=== PATIENT | male | born 1940 | race Caucasian/White ===

== ENCOUNTER 2021-03-29 07:30 | Outpatient (CLI) | payer MEDICARE, SELFPAY ==
--- NOTE | ~2021-03-29 | CT_ITS ---
EXAMINATION: CT chest abdomen pelvis w con EXAM DATE: 03/29/2021 08:01 INDICATION: M54.9 - Dorsalgia, unspecified. Cough. Colon cancer. Nausea. TECHNIQUE: Spiral CT of the chest, abdomen and pelvis was performed following intravenous injection o f 100 mL Omnipaque 350. Axial, coronal and sagittal images chest, abdomen and pelvis were reviewed. Coronal maximum intensity pixel images of chest reviewed. The dose-length product (DLP) for this ex amination was 1122.44 mGy-cm. The exposure was tailored according to patient size (auto mA exposure control), and iterative reconstruction (ASIR) was used as additional dose reduction technique. 2012 FINDINGS: CHEST: Scattered small regions of post infectious residua. No suspicious lung opacities. No aortic d issection or central pulmonary emboli. There are no pleural or pericardial effusions. Tracheobronc hial tree is patent. There is no mediastinal, hilar or axillary lymphadenopathy. There is no pneu mothorax. Heart normal in size. There is moderate coronary arterial calcification, arterial scler osis. ABDOMEN PELVIS: Scattered small liver lesions which are fluid density consistent with cysts. Low-dens ity left adrenal lesion, adenoma measuring 1.1 cm. The liver, spleen, adrenal glands and pancreas are otherwise unremarkable. Gallbladder is unremarkable. No biliary obstruction. Portal and splenic v eins are patent. Kidneys enhance symmetrically. There is no hydronephrosis. There are a couple of l eft renal cysts measuring up to 1.8 cm. The prostate is unremarkable. Small inguinal fat-containing hernias. The bladder is unremarkable. There is no retroperitoneal or pelvic lymphadenopathy. Ther e is mild scattered arteriosclerotic disease. The appendix is not positively visualized. There is no pericecal inflammatory change to suggest appe ndicitis. There is an ileal anastomosis, and a rectosigmoid anastomosis. There are jejunal diverticul a, largest measuring about 5 cm. There is expected amount of colonic stool. No free intraperitonea l gas. Right hip arthroplasty hardware. There is L3 small hemangioma unchanged. There are no osteob lastic or osteolytic lesions identified. IMPRESSION: 1. Scattered small regions lung post infectious residua. 2. Jejunal diverticulosis. 3. Small inguinal hernias. 4. Surgical changes. Reviewed, dictated and finalized at location B.
[2021-03-29 07:56] LABS: Estimated Glomerular Filt Rate 58
== END 2021-03-29 07:31 | disposition home or self-care (01) ==
PROVIDERS: PCP Family Medicine; Visit Provider Internal Medicine Gastroenterology
DX: C18.9 Malignant neoplasm of colon, unspecified (principal); C61 Malignant neoplasm of prostate; M54.9 Dorsalgia, unspecified; K57.00 Diverticulitis of small intestine with perforation and abscess without bleeding; K40.90 Unilateral inguinal hernia, without obstruction or gangrene, not specified as recurrent
CPT/HCPCS: 71260; 74177; Q9967